=== PATIENT | male | born 1940 | race Caucasian/White ===

== ENCOUNTER → 2018-05-24 | Outpatient (REF) | payer MEDICARE, OTHER ==
[~2018-05-24] MED LIST: ADULT ASPIRIN E81 MG PO; ADVAIR DISK1; AMLOD/BENAZP1 CA2; ASPIRIN ADULT L81 MG; ATORVASTATIN CA20 MG; AVELOX400 MG PO; AZITHROMYCIN500 MG; CHERATUSSIN; GLIPIZIDE ER2.5 MG; IPRATROPIUM BROMIDE/ IN; METFORMIN HCL1000 M1 PO; PAROXETINE10 MG; PREDNISONE10 MG PO; SPIRIVA HANDIHALER; ZYPREXA PO; ZYPREXA10 M1; [UNRECOGNIZED DRUG - OTHER]
[2018-05-24 09:26] LABS: HEMATOCRIT 32.2 % (39.0-50.0); HEMOGLOBIN 10.2 g/dl (14.0-18.0); IMMATURE GRANULOCYTES 0.5 % (0.0-5.0); MEAN CELL VOLUME 95.3 fL CALC (80.0-100.0); MEAN CORPUSCULAR HGB 30.2 pG CALC (26.0-32.0); MEAN CORPUSCULAR HGB CONC 31.7 g/L CALC (32.0-36.0); NEUT# 3.8 thou/uL (1.82-7.42); RED BLOOD COUNT 3.38 mill/uL (4.70-6.10); RED CELL DISTRI WIDTH 12.8 % (11.5-15.5)
[2018-05-24 09:45] LABS: ALBUMIN 4.2 g/dL (3.2-5.0); ALKALINE PHOSPHATASE 63 u/l (38-126); ANION GAP 14 (6-22 (CALC)); BILIRUBIN, TOTAL 0.3 mg/dL (0.0-1.4); BUN 20 mg/dL (8-23); BUN/CREATININE RATIO 17 (12-20 (CALC)); CALCULATED LDLCHOLESTEROL 46 mg/dL (62-129 (CALC)); CARBON DIOXIDE 33 mmol/l (22-30); CHLORIDE 98 mmol/l (95-108); CHOLESTEROL HDL RATIO 2.5 (<4.4 (CALC)); CREATININE 1.2 mg/dL (0.7-1.3); GFR 59 ML/MIN (>=60 (CALC)); GFR FOR AFR.AMER. > 60 ML/MIN (>=60 (CALC)); HDL CHOLESTEROL 45 mg/dL (>=40); POTASSIUM 4.2 mmol/l (3.5-5.1); SGOT/AST 17 u/l (19-48); SODIUM 141 mmol/l (137-146); TOTAL CHOLESTEROL 115 mg/dl (0-199); TOTAL TRIGLYCERIDES 116 mg/dl (30-149); VLDL CHOLESTROL 23 mg/dl (0-38 (CALC))
[2018-05-24 10:17] LABS: TSH, 3RD GENERATION 3.13 uIU/mL (0.47 - 4.68)
== END | disposition home or self-care (01) ==
LOC: LAB 08:22
PROVIDERS: ATTEND Internal Medicine
DX: E11.69 Type 2 diabetes mellitus with other specified complication (principal); J96.11 Chronic respiratory failure with hypoxia

== ENCOUNTER 2020-05-27 18:51 | Emergency (ER) | payer MEDICARE, OTHER ==
[~2020-05-27] VITALS: Ht 162.6 cm; Wt 64.0 kg
[~2020-05-27 18:51] MED LIST changes: +CLARINEX5 MG PO; -GLIPIZIDE ER2.5 MG; +GLIPIZIDE ER2.5 MG PO; -[UNRECOGNIZED DRUG - OTHER]
[2020-05-27 19:54] LABS: HEMATOCRIT 29.4 % (39.0-50.0); HEMOGLOBIN 9.1 g/dl (14.0-18.0); IMMATURE GRANULOCYTES 0.8 % (0.0-5.0); MEAN CELL VOLUME 95.8 fL CALC (80.0-100.0); MEAN CORPUSCULAR HGB 29.6 pG CALC (26.0-32.0); NEUT# 5.96 thou/uL (1.82-7.42); RED BLOOD COUNT 3.07 mill/uL (4.70-6.10); RED CELL DISTRI WIDTH 13.8 % (11.5-15.5)
[2020-05-27] MEDS ORDERED: NORVASC5 M1 PO (20:13)
[2020-05-27] MEDS ORDERED: CARVEDILOL6.25 MG PO (20:13)
[2020-05-27] MEDS ORDERED: TAMSULOSIN HCL0.4 MG PO (20:13)
[2020-05-27] MEDS ORDERED: PROAIR HFA108 MCG/AC IN (20:14)
[2020-05-27] MEDS ORDERED: BENZTROPINE0.5 MG PO (20:15)
[2020-05-27] MEDS ORDERED: IPRATROPIU0.5 MG/3 M IN (20:15)
[2020-05-27] MEDS ORDERED: OXY1 (20:18)
[2020-05-27 20:19] VITALS: BP 138/80
== END 2020-05-27 20:25 | disposition home or self-care (01) ==
LOC: ED 18:51
PROVIDERS: Family Medicine
DX: J44.9 Chronic obstructive pulmonary disease, unspecified (principal); Z99.81 Dependence on supplemental oxygen

== ENCOUNTER 2021-05-23 16:27 | Emergency (ER) | payer MEDICARE, OTHER ==
[~2021-05-23] VITALS: Ht 162.6 cm; Wt 65.0 kg
[2021-05-23] VITALS (9 sets, daily range): BP systolic 133–170; BP diastolic 64–78
[~2021-05-23 16:27] MED LIST changes: +BENZTROPINE0.5 MG PO; +CARVEDILOL6.25 MG PO; +IPRATROPIU0.5 MG/3 M IN; +NORVASC5 M1 PO; +OXY1; +PROAIR HFA108 MCG/AC IN; +TAMSULOSIN HCL0.4 MG PO
[2021-05-23] MEDS ORDERED: LIPITOR20 M1 PO (17:02)
[2021-05-23] MEDS ORDERED: METFORMIN HCL1000 MG PO (17:02)
[2021-05-23] MEDS ORDERED: FUROSEMIDE20 MG PO (17:03)
[2021-05-23] MEDS ORDERED: LOSARTAN POTASS50 MG PO (17:04)
[2021-05-23] MEDS ORDERED: PAROXETINE20 MG PO (17:05)
[2021-05-23] MEDS ORDERED: BASAGLAR K100 UNIT/M (17:05)
[2021-05-23] MEDS ORDERED: FERROUS SULF325 M3 PO (17:05)
[2021-05-23] MEDS ORDERED: [UNRECOGNIZED DRUG - SUPPLY] (17:06)
[2021-05-23 17:30] LABS: HEMATOCRIT 33.5 % (39.0-50.0); HEMOGLOBIN 10.4 g/dl (14.0-18.0); MEAN CELL VOLUME 99.7 fL CALC (80.0-100.0); NEUT# 5.7 thou/uL (1.82-7.42); RED BLOOD COUNT 3.36 mill/uL (4.70-6.10)
[2021-05-23 17:38] LABS: ALBUMIN 4.1 g/dL (3.2-5.0); BILIRUBIN, TOTAL 0.3 mg/dL (0.0-1.4); CREATININE 1.5 mg/dL (0.7-1.3); POTASSIUM 4.4 mmol/l (3.5-5.1)
== END 2021-05-23 18:45 | disposition home or self-care (01) ==
LOC: ED 16:27
PROVIDERS: Family Medicine
DX: B34.9 Viral infection, unspecified (principal); J44.9 Chronic obstructive pulmonary disease, unspecified; Z20.822 Contact with and (suspected) exposure to COVID-19